=== PATIENT | male | born 1975 ===

== ENCOUNTER 2016-12-14 05:51 | Observation (INO) ==
[2016-12-12 14:32] LABS: Basophils # 0.1 10*3/uL (0.0-0.2); Basophils % 0.6 % (0.0-0.8); Eosinophils # 0.4 10*3/uL (0.0-0.87); Eosinophils % 4.6 % (0.00-10.9); Hematocrit 41.5 VOL% (42.0-52.0); Hemoglobin 14.9 GM/DL (14.0-18.0); Immature Granulocytes % 0.4 %; Immature Granulocytes Absolute 0.03 #; Lymphocytes # 1.9 10*3/uL (1.4-4.0); Lymphocytes % 22.4 % (21.2-54.2); Mean Corpuscular HGB Conc 35.9 GM/DL (32-36); Mean Corpuscular Hemoglobin 31 PG (27-34); Mean Corpuscular Volume 86.3 FL (87-102); Mean Platelet Volume 9.6 FL (9.6-12.0); Monocytes # 0.5 10*3/uL (0.11-0.8); Monocytes % 6.4 % (1.7-12.7); Neutrophils # 5.6 10*3/uL (1.4-7.4); Neutrophils % 65.6 % (38.7-73.9); Platelet Count 319 T/CUMM (130-400); Red Blood Count 4.81 MC/CUMM (3.8-5.5); Red Cell Distribution Width 12.6 % (9.3-17.3); White Blood Count 8.5 T/CUMM (4-12)
--- NOTE | 2016-12-12 14:59 | EKG Report ---
Stationary ECG Study [facility] Test Date: 12/12/2016 3:00:15 PM Pat Name: JADE DUNCAN Department: Room: Gender: M Traffic Expert: LORENA ANNE : 1975 Requested by: Shawn Anne Order Number: [id number] Reading MD: JARED MARISCAL Intervals [place] Rate: 59 P: 35 WV: 156 QRS: 81 QRSD: 95 T: 9 QT: 392 QTc: 392 Interpretive Statements SINUS RHYTHM Electronically Signed On 12-13-16 07:56:53 CDT by JARED MARISCAL [email or web address]
[2016-12-12 15:01] LABS: Albumin 3.8 G/DL (3.4-5.0); Bilirubin,Total 0.6 MG/DL (0.2-1.0); Calcium 8.7 MG/DL (8.5-10.1); Osmolality,Calculated 276.4 MOS/KG (273-304); PT Patient Result 10.1 SECS; Partial Thromboplastin Time 30.9 SECS (0-40); Potassium 4.2 MMOL/L (3.5-5.1); Total Protein 7.1 G/DL (6.4-8.3)
--- NOTE | 2016-12-12 16:18 | XRay Report ---
XR chest 2V Date: 12/12/2016 2:15 PM History: Respiratory preoperative evaluation Comparison: None Technique: PA and lateral chest Findings: The heart is normal in size. The lungs are clear with unremarkable mediastinum. No acute osseous findings. Impression: No acute cardiopulmonary pathology identified. PROCEDURE INTERPRETED AT [facility] DEPARTMENT OF RADIOLOGY Final Report Signed by: Dr. Leyla Daniels
[2016-12-14] MEDS ORDERED: ceFAZolin 2,000 MG in PREMIX 1 EACH IV ONE (06:00)
[2016-12-14] MEDS: LACTATED RINGERS 1,000 ML IV SCH (06:25)
[2016-12-14] MEDS ORDERED: BUPIVACAINE 0.5% /EPI 10 ML VIAL ONE (06:27)
[2016-12-14] MEDS ORDERED: ceFAZolin 1,000 MG VIAL ONE (06:28)
[2016-12-14] MEDS ORDERED: BUPIVACAINE LIPOSOMAL 20 ML/266 MG VIAL ONE (08:41)
[2016-12-14] MEDS ORDERED: HYDROmorphone 2 MG/1 ML VIAL IV PRN (08:56)
[2016-12-14] MEDS ORDERED: ACETAMINOPHEN 325 MG TABLET PO PRN (08:56)
[2016-12-14] MEDS ORDERED: ONDANSETRON 4 MG/2 ML VIAL IV PRN (08:56)
[2016-12-14] MEDS ORDERED: TISSUE ADHESIVE 1 EACH APPLICATOR TOP ONE (08:57)
--- NOTE | 2016-12-14 09:14 | Operative Note ---
Date of procedure: 12/14/16 Pre-op diagnosis: Umbilical hernia symptomatic Post-op diagnosis: same Procedure: Operative note: Preoperative diagnosis: Symptomatic umbilical hernia with one episode of incarcerated Postoperative diagnosis: Same Procedure: High ligation of hernia sac with preperitoneal Stratus mesh repair of hernia defect Surgeon Dr. Saez Video Poker Floorman Salud Martínez, KINDER TEACHER ACNP Anesthesia general endotracheal with local Brief history: A large obese 41-year-old male essentially is fairly active and while doing some heavy lifting had the onset of pain and swelling in the umbilicus at this time. He had this reduced itself and came to see us and we could determine that he had a umbilical hernia in this area that was reducible at this time. Because of his work and his discomfort associated with this he went to go and get it fixed at this time. Procedure: With patient supine position prepped and draped in sterile fashion timeout and antibiotics completed we made a skin incision after we put in local anesthetic just below the umbilicus caring about mcc around the base of the umbilicus. We dissected down through the skin subtenons tissue to identify the fascia inferior to the hernia defect. I then dissected along this fascial plane around the hernia itself in order to get the edges of this clear. Once I had that done then opened up the hernia sac so that I can dissect the fascia out superiorly at this time. Once we had that dissected out and the hernia sac open we reduce some omentum back into the abdominal cavity at this time. I then dissected until I could get a good distance beyond the hernia defect at this time going to the fascial edges. Once we did that then I opened up the edge of the hernia sac so I could dissect the peritoneal portion out from underneath the fascial area. Once I had that dissected out to remove the excess of the hernia sac and we closed the peritoneum with a running 2-0 Vicryl suture and laid that back in the abdominal cavity. We now have a preperitoneal space it was well created at this time. At that point we estimated we needed about a 4 cm x 4 cm Stratus mesh in this area. We took that an oval portion of Stratus mesh the good #1 Prolene suture and sutured and then around 4 corners of this to make a good smooth portion of this Stratus mesh in that area. Once we had that sutured in well and tied we then irrigated out the mesh with Ancef solution. With that looking in good shape at that time and we closed the fascia over the mesh with a running 0 Prolene suture. With that closed washed and cleaned out the subcutaneous tissue but Xperell in for pain relief. At that point we then closed subtenons tissue with interrupted 3-0 Vicryl electing not to put a drain at this time. We then closed the skin with a running 4-0 Monocryl Dermabond applied there along with a bulky dressing. Estimated 20 cc Sponge count correct 2 Drains none Complications none Condition stable satisfactory Anesthesia: GETA, local (0.25% Marcaine with epinephrine mixed [id number] 1% Xylocaine plain) Surgeon / Physician: Shawn Saez Video Poker Floorman: Salud Martínez Estimated blood loss: other (20 cc) Specimens: other (Hernia sac) Condition: stable Disposition: same day Results - Labs CBC & BMP: 12/12/16 14:24 12/12/16 14:24 Discharge Plan - Discharge Medications New HYDROcodone/ACETAMIN 7.5-325 [[place] 7.5-325] 1 tablet PO Q8H PRN #30 tablet PRN Reason: Pain Mild To Moderate (1-7) Ketorolac Tab [Toradol Tab] 10 mg PO TID #14 tablet - Follow Up or Referral - Forms/Instructions
[2016-12-14] MEDS ORDERED: DESFLURANE 1 UNIT/15 MINUTE INH ONE (09:21)
[2016-12-14] MEDS ORDERED: PROPOFOL 200 MG/20 ML VIAL IV ONE (09:21)
[2016-12-14] MEDS ORDERED: fentaNYL 100 MCG/2 ML VIAL ONE (09:21)
[2016-12-14] MEDS ORDERED: MIDAZOLAM 2 MG/2 ML VIAL ONE (09:21)
[2016-12-14] MEDS ORDERED: ONDANSETRON 4 MG/2 ML VIAL ONE (09:22)
[2016-12-14] MEDS ORDERED: GLYCOPYRROLATE 0.4 MG/2 ML VIAL ONE (09:22)
[2016-12-14] MEDS ORDERED: ROCURONIUM 100 MG/10 ML VIAL IV ONE (09:22)
[2016-12-14] MEDS ORDERED: NEOSTIGMINE 10 MG/10 ML VIAL ONE (09:22)
[2016-12-14] MEDS ORDERED: ACETAMINOPHEN 1,000 MG/100 ML VIAL IV ONE (09:22)
[2016-12-14] MEDS ORDERED: DEXAMETHASONE 10 MG/1 ML VIAL ONE (09:22)
[2016-12-14] MEDS ORDERED: KETOROLAC 15 MG/1 ML VIAL IV ONE (09:30)
[2016-12-14] MEDS ORDERED: KETOROLAC 30 MG/1 ML VIAL ONE (09:51)
[2016-12-14] MEDS ORDERED: KETOROLAC 15 MG/1 ML VIAL ONE (09:53)
[2016-12-14] MEDS ORDERED: KETOROLAC 10 MG TABLET PO PRN (13:02)
[2016-12-14] MEDS ORDERED: CHLORHEXIDINE 4% SOLN 118 ML BOTTLE TOP ONE (13:09)
--- NOTE | 2016-12-14 13:12 | Event Note ---
12/14/2016 1300 out Was back to see the patient postop and he is complaining of a good bit of discomfort. He is a little bit concerned about going home because of the discomfort at this point time. His abdomen looks soft dressing is clean and dry at this point. Because of the amount of discomfort he is complaining of this point time I felt his best go ahead and admit him at least overnight to get him home tomorrow if he is doing better.
[2016-12-14] MEDS: ceFAZolin 2,000 MG in PREMIX 1 EACH IV SCH ×2 (16:24→23:36)
[2016-12-15 04:45] LABS: Basophils % 0.3 % (0.0-0.8); Eosinophils # 0.1 10*3/uL (0.0-0.87); Eosinophils % 0.6 % (0.00-10.9); Hematocrit 37.1 VOL% (42.0-52.0); Hemoglobin 13.2 GM/DL (14.0-18.0); Immature Granulocytes % 0.4 %; Immature Granulocytes Absolute 0.06 #; Lymphocytes % 14.1 % (21.2-54.2); Mean Corpuscular HGB Conc 35.6 GM/DL (32-36); Mean Corpuscular Hemoglobin 31 PG (27-34); Mean Corpuscular Volume 86.9 FL (87-102); Neutrophils # 10.9 10*3/uL (1.4-7.4); Neutrophils % 77.6 % (38.7-73.9); Platelet Count 332 T/CUMM (130-400); Red Blood Count 4.27 MC/CUMM (3.8-5.5); Red Cell Distribution Width 12.9 % (9.3-17.3)
[2016-12-15 05:23] LABS: Calcium 8.2 MG/DL (8.5-10.1); Osmolality,Calculated 279.3 MOS/KG (273-304); Potassium 4.1 MMOL/L (3.5-5.1)
[2016-12-15] MEDS ORDERED: ENOXAPARIN 40 MG/0.4 ML SYRINGE SUBCUT SCH (06:00)
[2016-12-15] MEDS: LACTATED RINGERS 1,000 ML IV SCH (07:43)
[2016-12-15] MEDS: ceFAZolin 2,000 MG in PREMIX 1 EACH IV SCH (07:52)
--- NOTE | 2016-12-15 08:29 | Discharge Summary ---
Hospital Course - Hospital Course Hospital Course: Discharge summary 12/15/2016. Diagnosis 1. Incarcerated umbilical hernia 2. Obesity Procedure performed: Reduction and repair of incarcerated umbilical hernia with Strattice mesh Brief summary-this 41-year-old male presented on 12/14/2016 for elective repair of an incarcerated umbilical hernia. This had become more symptomatic, and was interfering with his work and daily activities. He was taken to the operating room, where a small defect was encountered, but with a good degree of preperitoneal fat incarcerated. The defect was actually a bit larger than was first detected in the office, and once the area was reduced, it was felt prudent to complete the repair with a Stratus mesh. This was done without difficulty, and postoperatively while he had done quite well during surgery, it was felt that we needed to admit him for observation postop given the additional dissection. Overnight, he has done quite well, with minimal discomfort and no nausea and vomiting. His vital signs have remained normal. This morning his labs are stable, with H&H of 13 and 37 respectively. He is able to tolerate a regular diet, and is having no shortness of breath. He has hypoactive bowel sounds and no guarding. His abdominal incision is clean with a minimum amount of ecchymosis in particular at the superior portion of the incision, but no fluctuance or unusual swelling. He is able to ambulate about the room comfortably, and is comfortable with the idea of going home. We will therefore plan to send him home today, with just some tramadol for moderate to severe pain, having him use qohc-swt-pihbogw ibuprofen and acetaminophen for lesser pain. He has an abdominal binder in place for support to his obese abdomen, and has been instructed on local care of the incision as well as his physical limitations and restrictions and will follow up in the office in approximately 2 weeks. - Time spent with patient Time with patient DS: Greater than 30 minutes Time spent discussing smoking cessation with patient: 3 to 10 minutes Diagnosis - Discharge Diagnosis (1) Umbilical hernia, incarcerated Status: Acute Specialty Discharge - Follow Up or Referrals Follow up with: Shawn Saez MD [Physician] - 01/02/17 9:45 am Discharge Plan - Discharge Data Disposition: Disch To Home/Self Care Condition at Discharge: Stable Discharge Diet: advance to your usual diet, other (Take a laxative of choice if no bowel movement by Saturday morning) Activity: increase activity as tolerated, no lifting (Over 20 pounds) Hygiene: may shower Weight Bearing at Discharge: full weight bearing Driving: not for (1 week) Contact your physician if you experience:: fever over 101, Difficulty voiding, Redness or swelling, Nausea/Vomiting, Shortness of breath, Bleeding, pain uncontrolled by pain medications Wound / Dressing Care Instructions: Shower daily using antibacterial soap and water; rinse well. Pat the incision dry. Use a large Band-Aid or light gauze dressing over the incision. Avoid all lotions, ointments, chills, or creams to the incision. Use your binder for comfort when moving about. Avoid pulling the binder too tightly across the abdomen. - Discharge Medications New HYDROcodone/ACETAMIN 7.5-325 [[place] 7.5-325] 1 tablet PO Q8H PRN #30 tablet PRN Reason: Pain Mild To Moderate (1-7) Ketorolac Tab [Toradol Tab] 10 mg PO TID #14 tablet Docusate Sodium Cap [Colace Cap] 100 mg PO BEDTIME #30 capsule Tramadol HCl [Tramadol Tab] 50 mg PO Q6H PRN #20 tablet PRN Reason: Pain Moderate To Severe (4-10) - Follow Up or Referral Follow Up: Shawn Saez MD [Physician] - 01/02/17 9:45 am - Forms/Instructions Instructions: Umbilical Hernia (DC) Additional Discharge Instructions: Work excuse if patient desires Exam - Constitutional Vitals: Period Temp Pulse Resp BP Sys/Alfaor Pulse Ox Last 24 Hr 97.2 F-98.9 F 46-96 16-20 99-136/57-86 94-99 General appearance: no acute distress, over weight - Head Head exam: Present: normal inspection - Eye Eye exam: Present: EOMI Pupils: Present: [place] - Neck Neck exam: Absent: lymphadenopathy, tenderness - Respiratory Respiratory exam: Present: clear to auscultation bilaterally - Cardiovascular Cardiovascular exam: Present: regular rate and rhythm - GI/Abdominal GI/Abdominal exam: Present: hypoactive bowel sounds, tenderness (He is appropriately tender about the periumbilical region, and about the surgical incision.), other (The incision is clean and dry, and there is no unusual redness or swelling. He does have some slight ecchymosis and skin discoloration at the most superior portion of the incision; this is an area of approximately 0.5 cm in width by 1 cm in length). Absent: distended, firm, guarding, rebound - Extremities Exam Extremities exam: Present: normal inspection. Absent: calf tenderness, edema Discharge Results Labs on day of discharge: Labs from last 24 hours 12/15/16 12/15/16 03:56 03:56 WBC 14.0 H D RBC 4.27 Hgb 13.2 L Hct 37.1 L MCV 86.9 L MCH 31 MCHC 35.6 RDW 12.9 Plt Count 332 MPV 10.0 Neut % (Auto) 77.6 H Lymph % (Auto) 14.1 L [place] % (Auto) 7.0 Eos % (Auto) 0.6 Baso % (Auto) 0.3 Neut # (Auto) 10.9 H Lymph # (Auto) 2.0 [place] # (Auto) 1.0 H Eos # (Auto) 0.1 Baso # (Auto) 0.0 Immature Gran % 0.4 Nucleated RBC % 0.0 Immature Gran # 0.06 Nucleated RBCs # 0.00 Immature Plt Fraction 0.0 Sodium 141 Potassium 4.1 Chloride 109 H Carbon Dioxide 24 Anion Gap 12.1 BUN 9 Creatinine 1.30 GFR Calculation 96 BUN/Creatinine Ratio 6.00 Glucose 96 Calculated Osmolality 279.3 Calcium 8.2 L DS: Provider Date of admission: 12/14/16 13:02 Primary care physician: Bruna Carney MD Attending physician on admission: Shawn Saez MD Discharging clinician: Salud Martínez CNP, R
[2016-12-15] MEDS ORDERED: PANTOPRAZOLE 40 MG TABLET PO SCH (09:00)
[2016-12-15 12:06] VITALS: BP 102/65
--- NOTE | 2016-12-15 15:12 | Anesthesia Post-Op ---
Anesthesia Post OP - Post Ansesthetic Evaluation Patient seen in post op: Yes Resp: within normal limits CV: within normal limits Mental: within normal limits Temp: within normal limits Lqxn-Cc-Xngjiivnb: within normal limits Nausea and Vomiting: within normal limits Pain: within normal limits
--- NOTE | 2016-12-15 19:20 | Pathology Report from [facility] ---
[facility] [id number] PATIENT NAME : Jade Martínez ORDERING DR : MAI ANNE MD CLINICAL HX: Umbilical hernia POST-OP DX: Same SPECIMEN INFO: Hernia sac GROSS DESCRIPTION: The specimen is received in formalin labeled JADE MARTÍNEZ/ HERNIA SAC consists of a fragment of fatty fibromembranous tissue measuring 4.3 x 1.5 cm. A metals sales representative section is submitted in one cassette. DIAGNOSIS FOR JADE MARTÍNEZ: UMBILICAL HERNIA SAC: Fibrovascular and adipose tissue, consistent with hernia sac. COLLECTED DATE: 12/14/2016 [facility] REPORT DATE: 12/15/2016 ELECTRONICALLY SIGNED BY: Khalida Dubon M.D. 12/15/2016 [facility] 14:41:50 [facility]
== END 2016-12-15 12:49 | disposition home or self-care (01) ==
LOC: N.SDSINP 05:51 → N.OR 05:51 → N.SDSINP 05:56 → N.3E 14:47
PROVIDERS: ADMIT Specialist; ATTEND Specialist